=== PATIENT | female | born 1990 | race Caucasian/White ===

== ENCOUNTER → 2017-12-08 | Outpatient (CLI) | payer OTHER ==
[2016-08-19 07:35] VITALS: BP 129/77
== END ==
LOC: RT 16:03
PROVIDERS: ATTEND Family Medicine
DX: R07.89 Other chest pain (principal)
CPT/HCPCS: 93005; 93010

== ENCOUNTER 2017-12-13 22:19 | Emergency (ER) | payer OTHER ==
[2017-12-13 22:27] VITALS: BMI 35.2
--- NOTE | 2017-12-13 23:06 | DR.GENAD ---
HPI - PCP Primary Care Physician: MOIRA - HPI Comment HPI Comment: PATIENT IS BEING HAVING THESE SYMTOMS FOR ONE MONTH. TONIGHT, WORSE. CP MORE FREQUENT AND MORE INTENSE. NO FEVER. HER THYRIOD MED IS CURRENTLY BEING ADJUSTED. - Complaint/Symptoms Chief Complaint Doctors Comments: CHEST PAIN AND EPISODE OF PALPITATION AT HOME. Chief Complaint:: PALPATATIONS AND CP X 1 MONTH OFF/ON Self Treatment fo Chief Complaint: NONE - Nurses notes reviewed Nurses Notes Review: Yes - Source History Provided: Patient - Mode of Arrival Mode of Arrival: Ambulatory - Timing Onset of Chief Complaint: 12/13/17 Came on: Suddenly - Duration Duration: Intermittent Duration: Days - Severity Severity: Moderate PMH - PMH Past Medical History: Yes Past Medical History: Hypothyroidism Past Surgical History: No - Family History History of Family Medical Conditions: No - Social History Does patient currently use any type of tobacco product: No Have you used tobacco products in the last 12 months: No Type of Tobacco Use: None Does any household member use tobacco: No Alcohol Use: None Do you use any recreational Drugs:: No Lives With: Spouse Lives Where: Home - infectious screening In the last 2 months have you had wt loss of >10#?: NO Have you had fever, night sweats or hemotysis?: No Have you traveled outside the country in the last 6 months?: No Isolation: Standard ROS - Review of Systems Constitutional: No Symptoms Reported Eyes: No Symptoms Reported ENTM: No Symptoms Reported Respiratoy: No Symptoms Reported Cardiovascular: Palpitations Gastrointestinal/Abdominal: No Symptoms Reported Genitourinary: No Symptoms Reported Neurological: Headache Musculoskeletal: No Symptoms Reported Integumentary: No Symptoms Reported Hematologic/Lymphatic: No Symptoms Reported Endocrine: No Symptoms Reported All Other Systems: Reviewed and Negative PE - Vital Signs Vitals: Temperature 97.3 F Pulse Rate [Left Brachial] 58 Pulse Rate 60 Respiratory Rate 16 Blood Pressure [Left Arm] 109/59 Blood Pressure 130/81 O2 Sat by Pulse Oximetry 99 - General Limitations: No Limitations - Head Head Exam: Normal Inspection - Eyes Eye exam: Normal Appearance - ENT ENT Exam: Normal External Ear Exam External Ear Exam: Normal External Inspection TM/Canal Exam: Bilateral Normal Nose Exam: Normal Nose Exam Mouth Exam: Normal Inspection Throat Exam: Normal Inspection - Neck Neck Exam: Normal Inspection - Chest Chest Inspection: Symmetric Chest Wall Rise - Respiratory Respiratory Exam: Normal Lung Sounds Bilat Respiratory Exam: Bilateral Clear to Auscultation - Cardiovascular Cardiovascular Exam: Regular Rate, Normal Rhythm, Normal Heart Sounds - Abdominal Exam Abdominal Exam: Normal Bowel Sounds, Soft. negative: Tenderness - Extremities Extremities Exam: Normal Inspection - Back Back Exam: Normal Inspection - Neurologic Neurological Exam: Alert, Oriented X3 - Psychiatric Psychiatric Exam: Normal Affect, Normal Mood - Skin Skin Exam: Normal Color MDM - Differential Diagnosis Differential Diagnosis: HIST PALPITATION, THYRIOD DISEASE, NE, ARRYTHMIA, PE Course - Treatment Treatment: SEE ORDERS. - Education/Counseling Education/Counseling: Patient, Education Educated On: Diagnosis, Needs for Follow Up ROR - Labs Reviewed Laboratory Results Reviewed?: Yes Result Diagrams: 12/13/17 23:09 12/13/17 23:09 Laboratory: WBC 13.2 X10^3/uL (3.6-10.0) H 12/13/17 23:09 RBC 4.45 X10^6/uL (3.5-5.4) 12/13/17 23:09 Hgb 12.9 g/dL (12.0-16.0) 12/13/17 23:09 Hct 38.4 % (36.0-47.0) 12/13/17 23:09 MCV 86.3 fL (80.0-100.0) 12/13/17 23:09 MCH 29.1 pg (27.0-34.0) 12/13/17 23:09 MCHC 33.7 g/dL (33.0-35.0) 12/13/17 23:09 RDW 13.6 % (11.6-16.5) 12/13/17 23:09 Plt Count 330 X10^3/uL (150.0-450.0) 12/13/17 23:09 MPV 8.7 fL (7.4-11.0) 12/13/17 23:09 Neut % 63.7 % (42.0-75.0) 12/13/17 23:09 Lymph % 27.0 % (21.0-51.0) 12/13/17 23:09 [place] % 6.2 % (0.0-13.0) 12/13/17 23:09 Eos % 2.6 % (0.9-2.9) 12/13/17 23:09 Baso % 0.5 % (0.2-1.0) 12/13/17 23:09 Neut # 8.4 x10^3/uL (2.2-4.8) H 12/13/17 23:09 Lymph # 3.6 X10^3/uL (1.3-2.9) H 12/13/17 23:09 [place] # 0.8 x10^3/uL (0.3-0.8) 12/13/17 23:09 Eos # 0.3 x10^3/uL (0.0-0.2) H 12/13/17 23:09 Baso # 0.1 X10^3/uL (0.0-0.1) 12/13/17 23:09 Absolute Nucleated RBC 0.0 /100WBC 12/13/17 23:09 D-Dimer < 100 ng/mL (0-400) 12/13/17 23:09 Sodium 141 mmol/L (136-145) 12/13/17 23:09 Corrected Sodium TNP 12/13/17 23:09 Potassium 3.8 mmol/L (3.5-5.1) 12/13/17 23:09 Chloride 106 mmol/L (98-107) 12/13/17 23:09 Carbon Dioxide 28.0 mmol/L (21-32) 12/13/17 23:09 BUN 14 mg/dL (7-18) 12/13/17 23:09 Creatinine 0.78 mg/dL (0.55-1.02) 12/13/17 23:09 Est GFR (MDRD) Af Amer > 60 (>60) 12/13/17 23:09 Est GFR (MDRD) Non-Af > 60 (>60) 12/13/17 23:09 Glucose 98 mg/dL (65-99) 12/13/17 23:09 Calcium 9.3 mg/dL (8.5-10.1) 12/13/17 23:09 Corrected Calcium TNP 12/13/17 23:09 Total Bilirubin 0.20 mg/dL (0.2-1.0) 12/13/17 23:09 AST 20 Units/L (15-37) 12/13/17 23:09 ALT 52 Units/L (12-78) 12/13/17 23:09 Alkaline Phosphatase 79 Units/L (46-116) 12/13/17 23:09 Creatine Kinase 93 Units/L (26-192) 12/13/17 23:09 CK-MB (CK-2) < 1.0 ng/mL (0-4.0) 12/13/17 23:09 CK/CKMB % Calc 1.1 % (<4) 12/13/17 23:09 Troponin I < 0.02 ng/mL (0-1.5) 12/13/17 23:09 Total Protein 7.8 g/dL (6.4-8.2) 12/13/17 23:09 Albumin 3.7 g/dL (3.4-5.0) 12/13/17 23:09 Globulin 4.1 g/dL (2.5-4.5) 12/13/17 23:09 Albumin/Globulin Ratio 0.9 Ratio (1.1-2.1) L 12/13/17 23:09 TSH 3rd Generation 1.693 uIU/mL (0.358-3.74) 12/13/17 23:09 Specimen Type Clean catch urine 12/13/17 23:09 Urine Color Pale yellow (YELLOW) 12/13/17 23:09 Urine Appearance Clear (CLEAR) 12/13/17 23:09 Urine pH 6.0 (5.0 - 8.0) 12/13/17 23:09 Ur Specific [place] 1.015 (1.000-1.030) 12/13/17 23:09 Urine Protein Negative (NEGATIVE) 12/13/17 23:09 Urine Glucose (UA) Negative (NEGATIVE) 12/13/17 23:09 Urine Ketones Negative (NEGATIVE) 12/13/17 23:09 Urine Occult Blood Negative (NEGATIVE) 12/13/17 23:09 Urine Nitrite Negative (NEGATIVE) 12/13/17 23:09 Urine Bilirubin Negative (NEGATIVE) 12/13/17 23:09 Urine Urobilinogen Normal (NORMAL) 12/13/17 23:09 Ur Leukocyte Esterase 1+ (NEGATIVE) 12/13/17 23:09 Urine RBC 0-3 /HPF (NEGATIVE) 12/13/17 23:09 Urine WBC 1-4 /HPF (NEGATIVE) 12/13/17 23:09 Ur Squamous Epith Cells Few /HPF (NEGATIVE) 12/13/17 23:09 Urine Bacteria Negative /HPF (NEGATIVE) 12/13/17 23:09 Ur Culture Indicated? No/not indicated 12/13/17 23:09 H. pylori IgG Antibody Positive (NEGATIVE) A 12/13/17 23:09 - XRAY XRAY Interpreted by: Radiologist XRAY Findings: REPORT DISCUSS WITH PATIENT. - EKG Rhythm: NSR (EKG NOTED) - Diagnosis Discharge Problem: Helicobacter pylori ab+, History of palpitations Chest pain Qualifiers: Chest pain type: intercostal pain Qualified Code(s): R07.82 - Intercostal pain - Discharge Plan Disposition: HOME, SELF-CARE Condition: Stable Prescriptions: Ranitidine HCl [ZANTAC TAB 150 MG *] 150 mg PO BID #60 tab - Follow ups/Referrals Follow ups/Referrals: NANCI PIZARRO [Primary Care Provider] - 12/14/17 - Instructions Instructions: Helicobacter Pylori Antibodies Test, Chest Pain Observation Additional Instructions: RETURN TO ED IF WORSE. SEE YOU DOCTOR IN AM. HAVE YOUR DOCTOR TREAT YOU FOR H PYLORI.
--- NOTE | 2017-12-13 23:23 | RAD ---
AP Chest Indication: Palpitations Comparison: None available Findings: The trachea is midline. The cardiac silhouette is unremarkable. The lungs are clear without focal i nfiltrate or effusion. The bony thorax is unremarkable. IMPRESSION: 1. No acute cardiopulmonary abnormality. Reported By:
[2017-12-13 23:26] LABS: BASOPHILS # (AUTO) 0.1 X10^3/uL (0.0-0.1); BASOPHILS % (AUTO) 0.5 % (0.2-1.0); BILIRUBIN,URINE NEGATIVE (NEGATIVE); BLOOD/HEMOGLOBIN,URINE NEGATIVE (NEGATIVE); EOSINOPHILS # (AUTO) 0.3 x10^3/uL (0.0-0.2); EOSINOPHILS % (AUTO) 2.6 % (0.9-2.9); GLUCOSE, URINE NEGATIVE (NEGATIVE); HEMATOCRIT 38.4 % (36.0-47.0); HEMOGLOBIN 12.9 g/dL (12.0-16.0); KETONES,URINE NEGATIVE (NEGATIVE); LEUKOCYTE ESTERASE ,URINE 1+ (NEGATIVE); LYMPHOCYTES # (AUTO) 3.6 X10^3/uL (1.3-2.9); MEAN CORPUSCULAR HEMOGLOBIN 29.1 pg (27.0-34.0); MEAN CORPUSCULAR HGB CONC 33.7 g/dL (33.0-35.0); MEAN CORPUSCULAR VOLUME 86.3 fL (80.0-100.0); MEAN PLATELET VOLUME 8.7 fL (7.4-11.0); MONOCYTES # (AUTO) 0.8 x10^3/uL (0.3-0.8); MONOCYTES % (AUTO) 6.2 % (0.0-13.0); NEUTROPHILS # (AUTO) 8.4 x10^3/uL (2.2-4.8); NEUTROPHILS % (AUTO) 63.7 % (42.0-75.0); NITRITES,URINE NEGATIVE (NEGATIVE); PLATELET COUNT 330 X10^3/uL (150.0-450.0); PROTEIN,URINE NEGATIVE (NEGATIVE); RED BLOOD COUNT 4.45 X10^6/uL (3.5-5.4); RED CELL DISTRIBUTION WIDTH 13.6 % (11.6-16.5); UROBILINOGEN,URINE NORMAL (NORMAL); WHITE BLOOD COUNT 13.2 X10^3/uL (3.6-10.0)
[2017-12-13 23:35] LABS: APPEARANCE,URINE CLEAR (CLEAR); COLOR,URINE PALE YELLOW (YELLOW)
[2017-12-13 23:36] LABS: BACTERIA,URINE NEGATIVE /HPF (NEGATIVE); RBC,URINE 0-3 /HPF (NEGATIVE); SQUAMOUS EPITHELIAL CELL,UR FEW /HPF (NEGATIVE)
[2017-12-13 23:39] LABS: BLOOD UREA NITROGEN 14 mg/dL (7-18); CALCIUM 9.3 mg/dL (8.5-10.1); CHLORIDE 106 mmol/L (98-107); CREATININE 0.78 mg/dL (0.55-1.02); SODIUM 141 mmol/L (136-145); TROPONIN I < 0.02 ng/mL (0-1.5); eGFR BLACK RACES > 60 (>60); eGFR NON BLACK RACES > 60 (>60)
[2017-12-13 23:43] LABS: ALANINE AMINOTRANSFERASE 52 Units/L (12-78); ALBUMIN 3.7 g/dL (3.4-5.0); ALKALINE PHOSPHATASE 79 Units/L (46-116); ASPARTATE AMINO TRANSFERASE 20 Units/L (15-37); CKMB % 1.1 % (<4); CREATINE KINASE 93 Units/L (26-192); CREATINE KINASE MB < 1.0 ng/mL (0-4.0); TOTAL PROTEIN 7.8 g/dL (6.4-8.2); TSH (3RD GENERATION) 1.693 uIU/mL (0.358-3.74)
[2017-12-14] MEDS ORDERED: ZANTAC PO ONE ×2 (00:20→00:25)
[2017-12-14 00:36] VITALS: BP 109/59
== END 2017-12-14 00:35 | disposition home or self-care (01) ==
LOC: ER 22:30
DX: R00.2 Palpitations (principal); R07.82 Intercostal pain; B96.81 Helicobacter pylori [H. pylori] as the cause of diseases classified elsewhere; R07.89 Other chest pain
CPT/HCPCS: 36415; 71045; 80053; 81001; 82550; 82553; 84443; 84484; 85025; 85378; 86677; 93005; 93010; 99283

== ENCOUNTER 2023-07-06 11:40 | Observation (INO) ==
--- NOTE | 2023-07-06 13:36 | EKG ---
Test Reason : PALPITATIONS, SYNCOPE Blood Pressure : */* mmHG Vent. Rate : 64 BPM Atrial Rate : 65 BPM P-R Int : 156 ms QRS Dur : 96 ms QT Int : 398 ms P-R-T Axes : 10 25 48 degrees QTc Int : 410 ms Normal sinus rhythm with sinus arrhythmia T wave abnormality, consider anterior ischemia Abnormal ECG No previous ECGs available Confirmed by Jose Francisco Zabala ([id number]) on 07/10/2023 7:25:35 AM Referred By: Confirmed By: Jose Francisco Zabala
[2023-07-06] MEDS ORDERED: NS 1,000 ML IV 1,000 ML IV SCH (14:00)
[2023-07-06 14:03] VITALS: BMI 15.6
[2023-07-06 14:06] LABS: BASOPHILS # (AUTO) 0.1 X10^3/uL (0.0-0.1); BASOPHILS % (AUTO) 0.8 % (0.2-1.0); EOSINOPHILS # (AUTO) 0.2 x10^3/uL (0.0-0.2); EOSINOPHILS % (AUTO) 2.9 % (0.9-2.9); HEMATOCRIT 37.4 % (36.0-47.0); HEMOGLOBIN 12.4 g/dL (12.0-16.0); LYMPHOCYTES # (AUTO) 2.5 X10^3/uL (1.3-2.9); LYMPHOCYTES % (AUTO) 28.5 % (21.0-51.0); MEAN CORPUSCULAR HEMOGLOBIN 29.7 pg (27.0-34.0); MEAN CORPUSCULAR HGB CONC 33.2 g/dL (33.0-35.0); MEAN CORPUSCULAR VOLUME 89.3 fL (80.0-100.0); MONOCYTES # (AUTO) 0.7 x10^3/uL (0.3-0.8); MONOCYTES % (AUTO) 7.6 % (0.0-13.0); NEUTROPHILS # (AUTO) 5.3 x10^3/uL (2.2-4.8); NEUTROPHILS % (AUTO) 60.2 % (42.0-75.0); PLATELET COUNT 294 X10^3/uL (150.0-450.0); RED BLOOD COUNT 4.18 X10^6/uL (3.5-5.4); RED CELL DISTRIBUTION WIDTH 13.9 % (11.6-16.5); WHITE BLOOD COUNT 8.7 X10^3/uL (3.6-10.0)
[2023-07-06 14:24] LABS: BLOOD UREA NITROGEN 11 mg/dL (7-18); CALCIUM 9.4 mg/dL (8.5-10.1); CARBON DIOXIDE 30.2 mmol/L (21-32); CHLORIDE 101 mmol/L (98-107); CREATININE 0.67 mg/dL (0.55-1.02); GLUCOSE 89 mg/dL (65-99); POTASSIUM 3.7 mmol/L (3.5-5.1); SODIUM 137 mmol/L (136-145); eGFR NON BLACK RACES > 60 (>60)
[2023-07-06 14:25] LABS: CREATINE KINASE 115 Units/L (26-192)
[2023-07-06 14:49] LABS: IRON 73 ug/dL (50-175); TOTAL IRON BINDING CAPACITY 360 ug/dL (250-450)
[2023-07-06] MEDS ORDERED: CONSULT PHARMACY - POTASSIUM & MAGNESIUM XX SCH (15:00)
[2023-07-06 15:35] LABS: ALANINE AMINOTRANSFERASE 22 Units/L (12-78); ALBUMIN 3.9 g/dL (3.4-5.0); ALKALINE PHOSPHATASE 61 Units/L (46-116); ASPARTATE AMINO TRANSFERASE 17 Units/L (15-37); TOTAL PROTEIN 7.4 g/dL (6.4-8.2)
--- NOTE | 2023-07-06 15:39 | RAD ---
HISTORYPALPITATIONS Relevant Clinical InformationSTUDYCHEST, 1 [id number] cardiac silhouette is normal in size. No focal infiltrate or significant effusion is identified. There is no pneumothorax.IMPRESSIONNo acute cardiopulmonary abnormality.Electronically signed by: KULDEEP GU (Jul 06, 2023 15:36:49)
[2023-07-06] MEDS: NS + KCL 20 MEQ/L 1,000 ML IV SCH (16:11)
--- NOTE | 2023-07-06 16:43 | CT ---
HISTORYSYNCOPESTUDYCT brain without IV contrastCOMPARISONNoneTECHNIQUEMultiple axial images of the brain were obtained without IV contrast. Dose reduction techniques including Automated Exposure Control (AEC) and adjustment of mA and kV were utilized.FINDINGSAir-fluid levels are seen in the paranasal sinuses with mucosal thickening. Findings suggest acute sinusitis. Mastoid air cells appear clear. No calvarial fracture is seen.No acute intracranial hemorrhage or mass effect is seen. The cerebral ventricles are normal in size. No evidence of acute CVA.IMPRESSIONNo intracranial abnormalities are seen.Acute sinusitis.Electronically signed by: Bladimir García (Jul 06, 2023 16:42:09)
--- NOTE | 2023-07-06 18:31 | EKG ---
Test Reason : PALPITATIONS, SYNCOPE Blood Pressure : */* mmHG Vent. Rate : 53 BPM Atrial Rate : 53 BPM P-R Int : 154 ms QRS Dur : 96 ms QT Int : 450 ms P-R-T Axes : 56 31 61 degrees QTc Int : 422 ms Sinus bradycardia with premature supraventricular complexes Otherwise normal ECG When compared with ECG of 06-JUL-2023 13:27, (Unconfirmed) premature supraventricular complexes are now present T wave inversion no longer evident in Anterior leads Confirmed by Jose Francisco Zabala ([id number]) on 07/10/2023 7:25:18 AM Referred By: Confirmed By: Jose Francisco Zabala
[2023-07-06 19:56] LABS: BILIRUBIN,URINE NEGATIVE (NEGATIVE); BLOOD/HEMOGLOBIN,URINE 4+ (NEGATIVE); GLUCOSE, URINE NEGATIVE (NEGATIVE); KETONES,URINE NEGATIVE (NEGATIVE); LEUKOCYTE ESTERASE ,URINE NEGATIVE (NEGATIVE); NITRITES,URINE NEGATIVE (NEGATIVE); PROTEIN,URINE NEGATIVE (NEGATIVE); UROBILINOGEN,URINE NORMAL (NORMAL)
[2023-07-06 20:00] LABS: APPEARANCE,URINE CLEAR (CLEAR); COLOR,URINE STRAW (YELLOW)
[2023-07-06 21:43] VITALS: RESP 18
--- NOTE | 2023-07-07 01:28 | EKG ---
Test Reason : Palpitations, Syncope Blood Pressure : */* mmHG Vent. Rate : 54 BPM Atrial Rate : 54 BPM P-R Int : 160 ms QRS Dur : 92 ms QT Int : 464 ms P-R-T Axes : -1 17 53 degrees QTc Int : 440 ms Sinus bradycardia with sinus arrhythmia Otherwise normal ECG When compared with ECG of 06-JUL-2023 17:53, (Unconfirmed) premature supraventricular complexes are no longer present Confirmed by Jose Francisco Zabala ([id number]) on 07/10/2023 7:24:27 AM Referred By: Confirmed By: Jose Francisco Zabala
[2023-07-07 01:35] LABS: BASOPHILS # (AUTO) 0.1 X10^3/uL (0.0-0.1); BASOPHILS % (AUTO) 0.8 % (0.2-1.0); EOSINOPHILS # (AUTO) 0.4 x10^3/uL (0.0-0.2); EOSINOPHILS % (AUTO) 4.1 % (0.9-2.9); HEMATOCRIT 38.8 % (36.0-47.0); HEMOGLOBIN 13.1 g/dL (12.0-16.0); LYMPHOCYTES # (AUTO) 3.4 X10^3/uL (1.3-2.9); LYMPHOCYTES % (AUTO) 31.2 % (21.0-51.0); MEAN CORPUSCULAR HEMOGLOBIN 30.2 pg (27.0-34.0); MEAN CORPUSCULAR HGB CONC 33.7 g/dL (33.0-35.0); MEAN CORPUSCULAR VOLUME 89.7 fL (80.0-100.0); MEAN PLATELET VOLUME 8.2 fL (7.4-11.0); MONOCYTES % (AUTO) 8.7 % (0.0-13.0); NEUTROPHILS # (AUTO) 6.1 x10^3/uL (2.2-4.8); NEUTROPHILS % (AUTO) 55.2 % (42.0-75.0); PLATELET COUNT 314 X10^3/uL (150.0-450.0); RED BLOOD COUNT 4.32 X10^6/uL (3.5-5.4); RED CELL DISTRIBUTION WIDTH 14.3 % (11.6-16.5)
[2023-07-07 02:09] LABS: ALANINE AMINOTRANSFERASE 20 Units/L (12-78); ALBUMIN 4.1 g/dL (3.4-5.0); ALKALINE PHOSPHATASE 69 Units/L (46-116); ASPARTATE AMINO TRANSFERASE 13 Units/L (15-37); BLOOD UREA NITROGEN 12 mg/dL (7-18); CALCIUM 8.7 mg/dL (8.5-10.1); CARBON DIOXIDE 28.5 mmol/L (21-32); CHLORIDE 100 mmol/L (98-107); CREATININE 0.83 mg/dL (0.55-1.02); GLUCOSE 96 mg/dL (65-99); POTASSIUM 3.6 mmol/L (3.5-5.1); SODIUM 137 mmol/L (136-145); TOTAL PROTEIN 7.7 g/dL (6.4-8.2); eGFR NON BLACK RACES > 60 (>60)
[2023-07-07] MEDS: NS + KCL 20 MEQ/L 1,000 ML IV SCH (05:12)
[2023-07-07] MEDS ORDERED: CONSULT PHARMACY - POTASSIUM & MAGNESIUM XX SCH (07:00)
[2023-07-07 07:40] VITALS: BP 105/61; PULSE 47; TEMP 98.2; O2SAT 99
[2023-07-07] MEDS ORDERED: K-DUR TAB 20 MEQ PO SCH (09:00)
== END 2023-07-07 12:45 | disposition home or self-care (01) ==
LOC: MED/SURG
PROVIDERS: ADMIT Internal Medicine; ATTEND Internal Medicine
DX: R53.1 Weakness; R55 Syncope and collapse; J01.90 Acute sinusitis, unspecified; R00.2 Palpitations; R94.31 Abnormal electrocardiogram [ECG] [EKG]; R77.8 Other specified abnormalities of plasma proteins